=== PATIENT | female | born 1990 | race Caucasian/White ===

== ENCOUNTER 2017-01-21 22:37 | Emergency (ER) | END 2017-01-22 01:00 | disposition home or self-care (01) | DX: J30.9 Allergic rhinitis, unspecified (principal) | CPT/HCPCS: 96372; J2930; Z7502; Z7610 ==

== ENCOUNTER 2017-08-18 20:33 | Emergency (ER) | END 2017-08-19 | disposition left against medical advice (07) ==

== ENCOUNTER 2018-06-22 06:29 | Emergency (ER) | END 2018-06-22 07:33 | disposition home or self-care (01) ==